=== PATIENT | male | born 1985 | race Caucasian/White ===

== ENCOUNTER 2018-07-06 13:57 | Emergency (ER) | payer MEDICAID ==
[~2018-07-06] VITALS: Ht 195.6 cm; Wt 78.5 kg
[2018-07-06 14:05] VITALS: BP 156/78
[2018-07-06] MEDS ORDERED: LIDOCAINE-MPF 1%, 5ML ONE (14:10)
[2018-07-06] MEDS ORDERED: LIDOCAINE-MPF 1%, 2ML ONE ×2 (15:00)
== END 2018-07-06 15:57 | disposition home or self-care (01) ==
LOC: ED 15:15
DX: S61.210A Laceration without foreign body of right index finger without damage to nail, initial encounter (principal); F17.200 Nicotine dependence, unspecified, uncomplicated; W26.0XXA Contact with knife, initial encounter; Y93.G9 Activity, other involving cooking and grilling; Y92.090 Kitchen in other non-institutional residence as the place of occurrence of the external cause; Y99.8 Other external cause status
CPT/HCPCS: 12041; 99284

== ENCOUNTER 2018-07-08 10:27 | Emergency (ER) | payer MEDICAID ==
[~2018-07-08] VITALS: Ht 193 cm; Wt 72.3 kg
[2018-07-08] MEDS ORDERED: IBUPROFEN 600 MG TABLET PO ONE (11:00)
--- NOTE | 2018-07-08 11:09 | NUR ---
PT BACK FROM X RAY AT THIS TIME. PT IN ROOM ON 02 AT 2LPN VIA NC DUE TO WHAT PT STATES UNABLE TO TAKE DEEP BREATH. PROVIDER MADE AWARE AT THIS TIME. PT HAS NO WANTS OR NEEDS AT THIS TIME.
[2018-07-08] MEDS ORDERED: IBUPROFEN 600 MG TABLET ONE (11:11)
[2018-07-08 11:27] LABS: BASOPHILS # (AUTO) 0.03 x10^3/uL (0-0.1); BASOPHILS % (AUTO) 0 % (0-1); EOSINOPHILS # (AUTO) 0.04 x10^3/uL (0-0.4); EOSINOPHILS % (AUTO) 0 % (1-7); LYMPHOCYTES # (AUTO) 2.57 x10^3/uL (1-3.4); LYMPHOCYTES % (AUTO) 27 % (22-44); MD NO; MEAN CORPUSCULAR HEMOGLOBIN 31.9 pg (27.5-34.5); MEAN CORPUSCULAR HGB CONC 33.3 g/dL (33.2-36.2); MEAN CORPUSCULAR VOLUME 95.8 fL (81-97); MEAN PLATELET VOLUME 7.9 fL (7.4-10.4); MONOCYTES # (AUTO) 1.15 x10^3/uL (0.2-0.8); MONOCYTES % (AUTO) 12 % (2-9); NEUTROPHILS % (AUTO) 61 % (42-75); PLATELET COUNT 227 x10^3/uL (130-400); RED BLOOD COUNT 4.64 x10^6/uL (4.38-5.82); RED CELL DISTRIBUTION WIDTH 13.9 % (9.4-14.8)
[2018-07-08 11:35] LABS: ALANINE AMINOTRANSFERASE 51 U/L (12-78); ALBUMIN 3.7 g/dL (3.4-5.0); ANION GAP 6 mmol/L (5-15); CHLORIDE 110 mmol/L (98-107); CREATININE 0.95 mg/dL (0.7-1.3)
[2018-07-08 11:37] LABS: ALKALINE PHOSPHATASE 76 U/L (45-117); BILIRUBIN,TOTAL 2.1 mg/dL (0.2-1.0); TOTAL PROTEIN 6.9 g/dL (6.4-8.2)
--- NOTE | 2018-07-08 12:52 | NUR ---
PT RE-EDUCATED ON THE NEED FOR URINE AT THIS TIME. PT INFORMED THAT IF HE IS UNABLE TO BE A STRAIGHT CATH MAY HAVE TO BE PERFORMED. PT EDUCATED ON WHAT A STRAIGHT CATH IS AND PT STATED TO THIS RN "HOW YOU GOING TO DO THAT WITH A BLACK EYE" WHEN ASKED TO CLARIFY WHAT WAS SAID PT STATES " YOU TOUCH ME I'M GOING TO SOCK YOU IN THE EYE.".
[2018-07-08 14:12] LABS: CULTURE INDICATED? YES; MICROSCOPIC INDICATED
[2018-07-08] MEDS ORDERED: SODIUM CHLORIDE FLUSH 10ML SYR IVF ONE (15:00)
--- NOTE | 2018-07-08 15:36 | NUR ---
pt at this time resting. snoring heard from room. vss at this time. pt expresses no wants or needs.
--- NOTE | 2018-07-08 16:10 | NUR ---
ct called to let this rn know the pt doesn't have an iv. this rn went to ct and started the iv
--- NOTE | 2018-07-08 16:40 | NUR ---
pt back from ct. pt sitting upright in bed and is eating crackers and peanut butter. pt is also drinking apple juice and water.
[2018-07-08 17:08] VITALS: BP 132/78
[2018-07-08] MEDS ORDERED: OMNIPAQUE 350 MG/ML, 100ML BOTTLE ONE (18:04)
== END 2018-07-08 17:10 | disposition home or self-care (01) ==
LOC: ED 11:07
DX: M54.6 Pain in thoracic spine (principal); R31.9 Hematuria, unspecified; Y04.8XXA Assault by other bodily force, initial encounter; Y93.89 Activity, other specified; Y92.89 Other specified places as the place of occurrence of the external cause
CPT/HCPCS: 36415; 71101; 74177; 76770; 80053; 81001; 85025; 87086; 99284; Q9967